=== PATIENT | female | born 1965 | race Caucasian/White ===

== ENCOUNTER 2020-12-31 15:36 | Outpatient (CLI) | payer BC, SELFPAY ==
--- NOTE | ~2020-12-31 | MM_ITS ---
EXAMINATION: MM screening desi BI w bobbi HISTORY: Screening TECHNIQUE: Craniocaudal and mediolateral oblique 3-D tomosynthesis images were obtained and synthetic 2-D images were generated. CAD analysis was submitted and interpreted. COMPARISON: Comparison to multiple prior studies sequentially, with oldest reviewed study dated 08/13. BREAST PARENCHYMAL COMPOSITION: There are scattered areas of fibroglandular density. FINDINGS: There is no evidence of suspicious mass, calcification, or architectural distortion to sugg est malignancy in either breast. There has been no suspicious interval change. IMPRESSION: 1. No mammographic evidence of malignancy. 2. Recommend routine screening mammography in one year. BI-RADS Category 1: Negative Reviewed, dictated and finalized at location A.
== END 2020-12-31 15:37 | disposition home or self-care (01) ==
LOC: ANHIMG 15:40
PROVIDERS: PCP Family Medicine; Visit Provider Family Medicine
DX: Z12.31 Encounter for screening mammogram for malignant neoplasm of breast (principal)
CPT/HCPCS: 77063; 77067

== ENCOUNTER 2021-05-18 08:08 | Outpatient (CLI) | payer BC, SELFPAY ==
[2021-05-18 11:45] LABS: Cortisol Random 1.68 ug/dL
== END 2021-05-18 08:09 | disposition home or self-care (01) ==
LOC: ANHLAB 08:19
PROVIDERS: PCP Family Medicine
DX: Z51.81 Encounter for therapeutic drug level monitoring (principal); Z79.899 Other long term (current) drug therapy; E11.65 Type 2 diabetes mellitus with hyperglycemia; I25.10 Atherosclerotic heart disease of native coronary artery without angina pectoris
CPT/HCPCS: 36415; 80299; 82533

== ENCOUNTER 2023-04-26 15:17 | Outpatient (CLI) | payer BC, SELFPAY ==
--- NOTE | ~2023-04-26 | MM_ITS ---
EXAMINATION: MM screening desi BI w bobbi HISTORY: Screening mammogram TECHNIQUE: Craniocaudal and mediolateral oblique 3-D tomosynthesis images were obtained and synthetic 2-D images were generated. CAD analysis was submitted and interpreted. COMPARISON: 12/31/2020, 06/21/2018 bilateral screening mammogram examinations BREAST PARENCHYMAL COMPOSITION: The breasts are almost entirely fatty. FINDINGS: Scattered bilateral benign calcifications. There is no evidence of suspicious mass, calcifi cation, or architectural distortion to suggest malignancy in either breast. There has been no suspici ous interval change. IMPRESSION: 1. No mammographic evidence of malignancy. 2. Recommend routine screening mammography in one year. BI-RADS Category 2: Benign finding(s). Reviewed, dictated and finalized at location L.
== END 2023-04-26 15:18 | disposition home or self-care (01) ==
LOC: ANHIMG 15:24
PROVIDERS: PCP Family Medicine; Visit Provider Nurse Practitioner Family
DX: Z12.31 Encounter for screening mammogram for malignant neoplasm of breast (principal)
CPT/HCPCS: 77063; 77067

== ENCOUNTER 2023-05-03 12:21 | Outpatient (CLI) | payer BC, SELFPAY ==
--- NOTE | ~2023-05-03 | MR_ITS ---
MRI of the left shoulder Technique: Axial proton-density fat-sat images, coronal proton density fat-sat and T2 fat-sat images, and sagittal T1-weighted and T2 fat-sat images were acquired. Clinical History: Rotator cuff insufficiency Findings: There is [id number] AC joint degenerative change. Coracoclavicular, coracoacromial, a nd coracohumeral ligaments are probably intact. There are complete, full-thickness tears involving the entirety of the supraspinatus and infraspinatu s tendons. Fluid-filled gap at the supraspinatus tear measures 3.0 x 3.5 cm in extent. There is mildl y decreased retraction of the infraspinatus tendon as compared to the supraspinatus. Subscapularis te ndon demonstrates tearing of the transverse ligament fibers with probable interstitial tear. There is medial dislocation of the biceps tendon from the bicipital groove which appears to be into the subst ance of the subscapularis tendon. No definite labral tear seen. Inferior glenohumeral ligament is intact. There is a small glenohumeral joint effusion, with fluid pa ssing through the rotator cuff defect into the subacromial/subdeltoid bursa. No muscle atrophy or mark ma. No degenerative change of the glenohumeral joint. Impression: Complete, full-thickness tears of the supraspinatus and infraspinatus tendons, as detailed above. Interstitial tear of the subscapularis tendon with probable complete tearing of the distal transverse ligament portion of the tendon. Medial dislocation of biceps tendon, which appears to be into the substance of the subscapularis,, pr esumably within the interstitial tear. Reviewed, dictated and finalized at location M. [employer] Impression: Complete, full-thickness tears of the supraspinatus and infraspinatus tendons, as detailed above. Interstitial tear of the subscapularis tendon with probable complete tearing of the distal transverse ligament portion of the tendon. Medial dislocation of biceps tendon, which appears to be into the substance of the subscapularis,, presumably within the interstitial tear.
== END 2023-05-03 12:22 | disposition home or self-care (01) ==
LOC: ANHIMG 12:26
PROVIDERS: PCP Family Medicine; Visit Provider Physician Assistant
DX: S46.812A Strain of other muscles, fascia and tendons at shoulder and upper arm level, left arm, initial encounter (principal); M25.312 Other instability, left shoulder
CPT/HCPCS: 73221